=== PATIENT | female | born 1995 | race Caucasian/White ===

== ENCOUNTER 2020-02-05 15:26 | Emergency (ER) | payer OTHER ==
[2020-02-05 16:29] LABS: #Eosinphils 0.1 thou/uL (0.0-0.7); #Lymphocytes 3.1 thou/uL (1.20-3.40); #Monocytes 0.7 thou/uL (0.11-0.59); #Neutrophils 3.3 thou/uL (1.40-6.50); %Basophils 0.6 % (0.0-1.0); %Eosinophils 1.9 % (0.0-10.0); %Neutrophils 45.4 % (42.0-75.0); Hemoglobin 11.3 g/dL (12.0-16.0); Mean Corpuscular HGB CONC 33.6 g/dL (32.0-36.0); Mean Corpuscular Hemoglobin 30.6 pg (27.0-31.0); Mean Corpuscular Volume 91.1 fL (78.0-98.0); Mean Platelet Volume 7.6 fL (7.4-10.4); Platelet Count 253 thou/uL (130-400); RBC Distribution Width 13.2 % (11.5-14.5); Red Blood Cell (RBC) Count 3.69 mill/uL (4.20-5.40); White Blood Cell (WBC) Count 7.2 thou/uL (4.8-10.8)
[2020-02-05 16:48] LABS: BHCG - Serum Negative (NEGATIVE); Pregs Control Background? CLEAR/WHITE (CLR/WHITE); Pregs Control Bar Appear? YES (CONTROL BAR)
[2020-02-05 16:50] LABS: ALT (SGPT) 60 U/L (8-55); AST (SGOT) 131 U/L (5-34); Albumin 3.7 g/dL (3.5-5.0); Alkaline Phosphatase 64 U/L (40-110); Anion Gap 14 mmol/L (10-20); BUN (Urea Nitrogen) 9 mg/dL (7.0-18.7); Bilirubin, Total 0.4 mg/dL (0.2-1.2); Calc. Creatinine Clearance 0 mL/min (70-130); Calcium 7.6 mg/dL (7.8-10.44); Carbon Dioxide 18 mmol/L (22-29); Chloride 109 mmol/L (98-107); Estimated GFR-MDRD 71; Glucose 299 mg/dL (70-105); Magnesium 1.7 mg/dL (1.6-2.6); Potassium 3.7 mmol/L (3.5-5.1); Protein, Total 5.7 g/dL (6.0-8.3); Sodium 137 mmol/L (136-145)
[2020-02-05 18:45] LABS: Bilirubin Negative (Negative); Blood, Urine Negative (Negative); Clarity Clear (Clear); Glucose, Urine (Dipstick) Greater than 1000 mg/dL (Negative); Leukocyte Negative Leu/uL (Negative); Nitrite Negative (Negative); Protein, Urine (Dipstick) Negative (Neg-Trace); Urobilinogen Normal mg/dL (Less than 2)
[2020-02-05 19:29] LABS: Bacteria/HPF None Seen HPF (None Seen); RBC/HPF 0-3 HPF (0-3); Squamous Epithelial 0-3 HPF (0-3); WBC/HPF 0-3 HPF (0-3)
== END 2020-02-05 20:13 | disposition home or self-care (01) ==
LOC: ERS 15:26
DX: E10.65 Type 1 diabetes mellitus with hyperglycemia (principal); E86.0 Dehydration; E03.9 Hypothyroidism, unspecified; D64.9 Anemia, unspecified; F31.9 Bipolar disorder, unspecified; F41.9 Anxiety disorder, unspecified; F17.210 Nicotine dependence, cigarettes, uncomplicated; Z79.899 Other long term (current) drug therapy
CPT/HCPCS: 36415; 36416; 80053; 82010; 83735; 84703; 85025; 96360

== ENCOUNTER 2024-08-12 13:15 | Inpatient (IN) | payer OTHER, SELFPAY ==
[2024-08-12 14:47] LABS: #Basophils Less than 0.03 10x3/uL (0.0-0.2); #Eosinophils Less than 0.03 10x3/uL (0.0-0.7); %Basophils 0.5 % (0.0-1.0); %Eosinophils 0.3 % (0.0-10.0); %Lymphocytes 31.1 % (21.0-51.0); %Monocytes 9.6 % (0.0-10.0); %Neutrophils 58.5 % (42.0-75.0); Hemoglobin 12.5 g/dL (12.0-16.0); Mean Corpuscular HGB CONC 32.9 g/dL (32.0-36.0); Mean Corpuscular Hemoglobin 29.7 pg (27.0-31.0); Mean Corpuscular Volume 90.3 fL (78.0-98.0); Mean Platelet Volume 9.3 fL (7.4-10.4); Platelet Count 252 10x3/uL (130-400); Red Blood Cell (RBC) Count 4.21 mill/uL (4.20-5.40)
[2024-08-12 14:49] LABS: Base Excess -13.5 mEq/L (-2.0 to +3.0); Calcium, Ionized (venous) 1.06 mmol/L (1.16-1.32); Chloride (VBG) 101 mmol/L (98-106); Hematocrit-VBG 41 % (36.0-47.0); Hemoglobin (Hb) 13.8 g/dL (11.7-15.5); Potassium (VBG) 4.52 mmol/L (3.70-5.30); Sodium 134 mmol/L (133-146)
[2024-08-12 14:52] LABS: Actual Bicarbonate (HCO3v) 14.1 mEq/L (22-28); pH (venous) 7.179 (7.32-7.43)
[2024-08-12 15:05] LABS: Phosphorus 3.3 mg/dL (2.3-4.7)
[2024-08-12 15:15] LABS: ALT (SGPT) 32 U/L (8-55); AST (SGOT) 18 U/L (5-34); Albumin 3.4 g/dL (3.5-5.0); Alkaline Phosphatase 63 U/L (40-110); Anion Gap 20 mmol/L (10-20); BUN (Urea Nitrogen) 18 mg/dL (7.0-18.7); Bilirubin, Total 0.2 mg/dL (0.2-1.2); Calc. Creatinine Clearance 0 mL/min (70-130); Carbon Dioxide 15 mmol/L (22-29); Chloride 103 mmol/L (98-107); Estimated GFR 71; Globulin 3.1 g/dL (2.4-3.5); Glucose 402 mg/dL (70-105); Magnesium 1.6 mg/dL (1.6-2.6); Potassium 4.5 mmol/L (3.5-5.1); Protein, Total 6.5 g/dL (6.0-8.3); Sodium 133 mmol/L (136-145)
[2024-08-12] MEDS ORDERED: Insulin Regular, Human 100 UNIT/ML 10 ML VIAL ONE (15:29)
[2024-08-12] MEDS ORDERED: INSULIN REGULAR IN 0.9 % NACL 100 ML ONE (15:29)
[2024-08-12] MEDS ORDERED: NS 0.9% w/ 20 MEQ KCL 1,000 ML IV SCH (16:30)
[2024-08-12 17:00] LABS: BHCG - Serum Negative (NEGATIVE); Pregs Control Background? CLEAR/WHITE (CLR/WHITE); Pregs Control Bar Appear? YES (CONTROL BAR)
[2024-08-12 17:31] LABS: Bacteria/HPF None Seen HPF (None Seen); Bilirubin Negative (Negative); Blood, Urine Negative (Negative); CAUTI Indications for Culture Dysuria,urgency,freq; Clarity Clear (Clear); Glucose, Urine (Dipstick) Greater than 1000 mg/dL (Negative); Ketone, Urine 150 mg/dL (Negative); Leukocyte Negative Leu/uL (Negative); Nitrite 2+ (Negative); Protein, Urine (Dipstick) Negative (Neg-Trace); RBC/HPF 0-3 HPF (0-3); Specific Gravity, Urine 1.032 (1.002-1.036); Squamous Epithelial 0-3 HPF (0-3); Urobilinogen Normal mg/dL (Less than 2); pH, Urine 5.5 (5.0-9.0)
[2024-08-12 17:33] LABS: Urine Culture Reflex No No
[2024-08-12] MEDS ORDERED: Dextrose 50% Abboject 50 ML SYRINGE SLOW IVP PRN (17:38)
[2024-08-12] MEDS ORDERED: NS 0.9% w/ 20 MEQ KCL 1,000 ML IV PRN ×2 (17:38)
[2024-08-12] MEDS ORDERED: Bisacodyl 5 MG TAB PO PRN (17:38)
[2024-08-12] MEDS ORDERED: Sodium Chloride 0.9% 1,000 ML IV PRN ×4 (17:38)
[2024-08-12] MEDS ORDERED: Ondansetron PF 4 MG/2 ML Vial IVP PRN (17:38)
[2024-08-12] MEDS ORDERED: Acetaminophen 325 MG TAB PO PRN (17:38)
[2024-08-12] MEDS ORDERED: Dextrose 5 %-0.45 % NaCl 1,000 ML IV PRN (17:38)
[2024-08-12] MEDS ORDERED: Electrolyte Replacement Protocol FS PRN (18:00)
[2024-08-12 19:14] LABS: Lactic Acid 1.44 mmol/L (0.5-2.2)
[2024-08-12 19:17] LABS: Anion Gap 11 mmol/L (10-20); BUN (Urea Nitrogen) 18 mg/dL (7.0-18.7); Calc. Creatinine Clearance 0 mL/min (70-130); Calcium 7.6 mg/dL (7.8-10.44); Carbon Dioxide 19 mmol/L (22-29); Chloride 110 mmol/L (98-107); Estimated GFR 99; Glucose 198 mg/dL (70-105); Potassium 3.7 mmol/L (3.5-5.1); Sodium 136 mmol/L (136-145)
[2024-08-12 19:33] VITALS: BMI 15.7
[2024-08-12] MEDS: Electrolyte Replacement Protocol 1 EACH IVPB ONE (19:48)
[2024-08-12] MEDS: D5 1/2 NS w/20 mEq KCL 1,000 ML IV PRN (19:49)
[2024-08-12] MEDS: Magnesium 2 GM/50 ML(in water) 2 GM in Premix 1 BAG IVPB SCH (21:59)
[2024-08-12 22:37] LABS: Anion Gap 11 mmol/L (10-20); BUN (Urea Nitrogen) 16 mg/dL (7.0-18.7); Calc. Creatinine Clearance 78 mL/min (70-130); Calcium 7.2 mg/dL (7.8-10.44); Carbon Dioxide 20 mmol/L (22-29); Chloride 109 mmol/L (98-107); Estimated GFR 96; Glucose 271 mg/dL (70-105); Potassium 4.2 mmol/L (3.5-5.1); Sodium 136 mmol/L (136-145)
[2024-08-13 02:35] LABS: #Basophils Less than 0.03 10x3/uL (0.0-0.2); %Basophils 0.5 % (0.0-1.0); %Eosinophils 0.9 % (0.0-10.0); %Lymphocytes 43.1 % (21.0-51.0); %Monocytes 7.5 % (0.0-10.0); %Neutrophils 47.8 % (42.0-75.0); Hematocrit 33.3 % (36.0-47.0); Hemoglobin 11.1 g/dL (12.0-16.0); Mean Corpuscular HGB CONC 33.3 g/dL (32.0-36.0); Mean Corpuscular Hemoglobin 29.7 pg (27.0-31.0); Mean Platelet Volume 9.1 fL (7.4-10.4); Platelet Count 208 10x3/uL (130-400); RBC Distribution Width 13.1 % (11.5-14.5); Red Blood Cell (RBC) Count 3.74 mill/uL (4.20-5.40)
[2024-08-13 02:52] LABS: Anion Gap 8 mmol/L (10-20); Anion Gap 9 mmol/L (10-20); BUN (Urea Nitrogen) 13 mg/dL (7.0-18.7); Calc. Creatinine Clearance 89 mL/min (70-130); Calc. Creatinine Clearance 93 mL/min (70-130); Calcium 7.1 mg/dL (7.8-10.44); Calcium 7.2 mg/dL (7.8-10.44); Carbon Dioxide 18 mmol/L (22-29); Chloride 112 mmol/L (98-107); Estimated GFR 112; Estimated GFR 117; Glucose 123 mg/dL (70-105); Glucose 124 mg/dL (70-105); Potassium 3.9 mmol/L (3.5-5.1); Sodium 134 mmol/L (136-145); Sodium 135 mmol/L (136-145)
[2024-08-13] MEDS: INSULIN REGULAR IN 0.9 % NACL 100 ML IVPB SCH (04:03)
[2024-08-13] MEDS: Lactated Ringer's 1,000 ML IV SCH (05:55)
[2024-08-13] MEDS: Enoxaparin 40 MG (0.4 mL) SYRINGE SC SCH (08:02)
[2024-08-13 10:06] LABS: Anion Gap 6 mmol/L (10-20); BUN (Urea Nitrogen) 12 mg/dL (7.0-18.7); Calc. Creatinine Clearance 101 mL/min (70-130); Carbon Dioxide 21 mmol/L (22-29); Chloride 110 mmol/L (98-107); Estimated GFR 123; Glucose 203 mg/dL (70-105); Potassium 4.1 mmol/L (3.5-5.1); Sodium 133 mmol/L (136-145)
[2024-08-13 11:01] VITALS: BMI 15.7
[2024-08-13] MEDS: Insulin Glargine 30 UNITS/0.3 ML VIAL SC SCH ×2 (11:17→19:54)
[2024-08-13] MEDS: traMADol HCl 50 MG TAB PO PRN ×2 (11:17→17:17)
[2024-08-13] MEDS: cefTRIAXone\\ROCEPHIN 1 GM in Sodium Chloride 0.9% 100 ML IVPB SCH (16:27)
[2024-08-13] MEDS ORDERED: Dextrose 5% in Water 1,000 ML IV PRN (16:28)
[2024-08-13] MEDS ORDERED: Glucagon 1 MG/ML KIT IM PRN (16:28)
[2024-08-13] MEDS: Insulin Lispro 100 UNIT/ML 10 ML VIAL SC PRN (16:33)
[2024-08-13] MEDS ORDERED: ALPRAZolam 1 MG TAB PO PRN (17:35)
[2024-08-13 19:07] LABS: HIV (1/2) Antibody/Antigen NONREACTIVE (NonReactive); HIV 1/2 INDEX 0.07 S/CO (<1.00)
[2024-08-14 00:05] LABS: Chlam.trachomatis by PCR,Urine Not Detected (NotDetected); GC N.gonorrhoeae PCR,UrineVOID Not Detected (NotDetected)
[2024-08-14 05:38] LABS: #Basophils Less than 0.03 10x3/uL (0.0-0.2); %Basophils 0.2 % (0.0-1.0); %Eosinophils 0.8 % (0.0-10.0); %Lymphocytes 29.7 % (21.0-51.0); %Monocytes 5.9 % (0.0-10.0); %Neutrophils 63.2 % (42.0-75.0); Hematocrit 34.7 % (36.0-47.0); Hemoglobin 11.5 g/dL (12.0-16.0); Mean Corpuscular HGB CONC 33.1 g/dL (32.0-36.0); Mean Corpuscular Hemoglobin 29.6 pg (27.0-31.0); Mean Corpuscular Volume 89.2 fL (78.0-98.0); Mean Platelet Volume 9.7 fL (7.4-10.4); Platelet Count 219 10x3/uL (130-400); RBC Distribution Width 13.2 % (11.5-14.5); Red Blood Cell (RBC) Count 3.89 mill/uL (4.20-5.40)
[2024-08-14 05:51] LABS: Anion Gap 10 mmol/L (10-20); BUN (Urea Nitrogen) 14 mg/dL (7.0-18.7); Calc. Creatinine Clearance 83 mL/min (70-130); Calcium 8.3 mg/dL (7.8-10.44); Carbon Dioxide 25 mmol/L (22-29); Chloride 101 mmol/L (98-107); Estimated GFR 104; Glucose 359 mg/dL (70-105); Potassium 4.4 mmol/L (3.5-5.1); Sodium 132 mmol/L (136-145)
[2024-08-14] MEDS ORDERED: Insulin Glargine 30 UNITS/0.3 ML VIAL SC SCH ×2 (09:00→21:00)
[2024-08-14 14:50] VITALS: BP 113/77; TEMP 98.2
[2024-08-15] MEDS ORDERED: FLU (Fluarix Triv) TS24-25(6MOS UP)/PF 45 MCG/0.5 ML Syringe IM ONE (09:00)
== END 2024-08-14 11:07 | disposition home or self-care (01) | DRG 638 ==
LOC: ERS 13:15 → IMCU/EMU 16:58 → T4-A 08-13 15:35
PROVIDERS: ADMIT Internal Medicine; ATTEND Internal Medicine
DX: E10.10 Type 1 diabetes mellitus with ketoacidosis without coma (principal); N39.0 Urinary tract infection, site not specified; I95.9 Hypotension, unspecified; R63.8 Other symptoms and signs concerning food and fluid intake; E03.9 Hypothyroidism, unspecified; F17.290 Nicotine dependence, other tobacco product, uncomplicated; E86.1 Hypovolemia; Z90.49 Acquired absence of other specified parts of digestive tract; Z79.899 Other long term (current) drug therapy
CPT/HCPCS: 36415; 36416; 80048; 80053; 81001; 82010; 82805; 83605; 83735; 84100; 84443; 84703; 85025; 87077; 87086; 87186; 87389; 87491; 87591; 87661; 93005; 94760; 96365; 96366; 96368; 96376; 99292; J0696; J1815; J3475; J3480; J7030; J7120

== ENCOUNTER 2024-08-22 23:22 | Emergency (ER) | payer SELFPAY ==
[2024-08-22] MEDS ORDERED: Metoclopramide HCl 10 MG (2 mL) VIAL ONE (23:54)
[2024-08-23] LABS: Bacteria/HPF None Seen HPF (None Seen); Bilirubin Negative (Negative); Blood, Urine Negative (Negative); CAUTI Indications for Culture Dysuria,urgency,freq; Clarity Clear (Clear); Glucose, Urine (Dipstick) Greater than 1000 mg/dL (Negative); Ketone, Urine Negative (Negative); Leukocyte Negative Leu/uL (Negative); Nitrite Negative (Negative); Protein, Urine (Dipstick) Negative (Neg-Trace); RBC/HPF None Seen HPF (0-3); Specific Gravity, Urine 1.032 (1.002-1.036); Squamous Epithelial 0-3 HPF (0-3); Urobilinogen Normal mg/dL (Less than 2); WBC/HPF 0-3 HPF (0-3); pH, Urine 6.5 (5.0-9.0)
[2024-08-23 00:06] LABS: Amphetamine Detected (NotDetected); Barbiturates Screen Not Detected (NotDetected); Benzodiazepine Screen Not Detected (NotDetected); Cocaine Metabolite Screen Not Detected (NotDetected); Methadone Not Detected (NotDetected); Methamphetamine Detected (NotDetected); Opiate Screen Not Detected (NotDetected); Oxycodone Screen Not Detected (NotDetected); Phencyclidine (PCP) Not Detected (NotDetected); THC/Cannabinoid Screen Detected (NotDetected); Tricyclic Screen Not Detected (NotDetected)
[2024-08-23 00:20] LABS: #Basophils 0.03 10x3/uL (0.0-0.2); %Basophils 0.5 % (0.0-1.0); %Eosinophils 2.4 % (0.0-10.0); %Lymphocytes 42.8 % (21.0-51.0); %Monocytes 6.1 % (0.0-10.0); %Neutrophils 47.9 % (42.0-75.0); Hematocrit 31.7 % (36.0-47.0); Hemoglobin 10.2 g/dL (12.0-16.0); Mean Corpuscular HGB CONC 32.2 g/dL (32.0-36.0); Mean Corpuscular Hemoglobin 29.5 pg (27.0-31.0); Mean Corpuscular Volume 91.6 fL (78.0-98.0); Mean Platelet Volume 8.8 fL (7.4-10.4); Platelet Count 418 10x3/uL (130-400); RBC Distribution Width 13.3 % (11.5-14.5); Red Blood Cell (RBC) Count 3.46 mill/uL (4.20-5.40)
[2024-08-23 00:22] LABS: Urine Culture Reflex No No
[2024-08-23 00:25] LABS: BHCG - Serum Negative (NEGATIVE); Pregs Control Background? CLEAR/WHITE (CLR/WHITE); Pregs Control Bar Appear? YES (CONTROL BAR)
[2024-08-23 00:36] LABS: Acetaminophen Less than 10 mcg/mL (Less than 10); Alcohol Less than 10.0 mg/dL (Less than 10); Salicylate Less than 8.0 mg/dL (Less than 8.0)
[2024-08-23 00:38] LABS: ALT (SGPT) 45 U/L (8-55); AST (SGOT) 32 U/L (5-34); Albumin 3.1 g/dL (3.5-5.0); Alkaline Phosphatase 63 U/L (40-110); Anion Gap 8 mmol/L (10-20); BUN (Urea Nitrogen) 22 mg/dL (7.0-18.7); Bilirubin, Total 0.2 mg/dL (0.2-1.2); Calc. Creatinine Clearance 0 mL/min (70-130); Calcium 8.2 mg/dL (7.8-10.44); Carbon Dioxide 27 mmol/L (22-29); Chloride 102 mmol/L (98-107); Estimated GFR 92; Globulin 2.7 g/dL (2.4-3.5); Glucose 613 mg/dL (70-105); Potassium 4.3 mmol/L (3.5-5.1); Protein, Total 5.8 g/dL (6.0-8.3); Sodium 133 mmol/L (136-145)
[2024-08-23 01:10] LABS: Actual Bicarbonate (HCO3v) 25.3 mEq/L (22-28); Analyzer IN Cardio ER; Base Excess -0.9 mEq/L (-2.0 to +3.0); Chloride (VBG) 98 mmol/L (98-106); Hematocrit-VBG 35 % (36.0-47.0); Potassium (VBG) 4.32 mmol/L (3.70-5.30); Sodium 133 mmol/L (133-146); pH (venous) 7.338 (7.32-7.43)
[2024-08-23] MEDS ORDERED: Insulin Regular, Human 100 UNIT/ML 10 ML VIAL ONE (01:11)
[2024-08-23 03:37] LABS: Anion Gap 9 mmol/L (10-20); BUN (Urea Nitrogen) 19 mg/dL (7.0-18.7); Calc. Creatinine Clearance 0 mL/min (70-130); Calcium 7.7 mg/dL (7.8-10.44); Carbon Dioxide 22 mmol/L (22-29); Chloride 112 mmol/L (98-107); Estimated GFR 122; Glucose 267 mg/dL (70-105); Potassium 3.3 mmol/L (3.5-5.1); Sodium 140 mmol/L (136-145)
== END 2024-08-23 04:46 | disposition home or self-care (01) ==
LOC: ERS 23:22 → EEVIPCON 23:22 → ERS 08-23 04:46
DX: E10.65 Type 1 diabetes mellitus with hyperglycemia (principal); F12.20 Cannabis dependence, uncomplicated; F17.290 Nicotine dependence, other tobacco product, uncomplicated
CPT/HCPCS: 36415; 36416; 80053; 80306; 80307; 81001; 82010; 82805; 83605; 83930; 84703; 85025; 93005; 96361; 96374; 96375; J1815; J2765